=== PATIENT | female | born 2000 | race Caucasian/White ===

== ENCOUNTER 2020-02-18 18:13 | Emergency (ER) | payer BC ==
[2020-02-18] MEDS ORDERED: Sodium Chloride 0.9% 10 ML Syringe FLUSH PRN (18:37)
[2020-02-18] MEDS ORDERED: Sodium Chloride 0.9% 1,000 ML IV ONE (18:38)
[2020-02-18] MEDS ORDERED: Ondansetron 4 MG/2 ML SDV IVPUSH ONE (18:38)
[2020-02-18 19:19] LABS: CHLORIDE,CL 104 mmol/L (98-107); SODIUM,NA 140 mmol/L (136-145)
[2020-02-18] MEDS ORDERED: Ketorolac 30 MG/ML SDV IVPUSH ONE (19:20)
[2020-02-18] MEDS ORDERED: diphenhydrAMINE 50 MG/ML SDV IVPUSH ONE (19:20)
[2020-02-18] MEDS ORDERED: SUMAtriptan 6 MG/0.5 ML SDV SUBCUT ONE (19:21)
--- NOTE | 2020-02-18 19:32 | EDM.PDOC ---
ED HPI GENERAL MEDICAL PROBLEM - General Chief Complaint: General Stated Complaint: HEADACHE, NAUSEA AND VOMITING Time Seen by Provider: 02/18/20 18:29 Source of Information: Reports: Patient History Limitations: Reports: No Limitations - History of Present Illness INITIAL COMMENTS - FREE TEXT/NARRATIVE: Patient comes to ER with migraine complaint. Has history of migraines but usually can control with ibuprofen. Does report having stomach discomfort prior to developing the headache around 3am yesterday morning. Developed nausea and emesis. No diarrhea/abd pain. Headache is worse than usual migraine and has not responded to OTC meds. Mild sore throat yesterday. No runny nose/congestion. No fever/chills. No loss of smell or significant fatigue. No body aches. No UTI symptoms or urinary changes. No other changes reported. No history of recent known Covid exposure. - Related Data Allergies Allergy/AdvReac Type Severity Reaction Status Date / Time No Known Allergies Allergy Verified 02/18/20 18:15 Home Meds: Home Meds Milnacipran HCl [Savella] 50 mg PO BID 02/18/20 [History] Past Medical History Neurological History: Reports: Migraines ED ROS GENERAL - Review of Systems Review Of Systems: Comprehensive ROS is negative, except as noted in HPI. ED EXAM, GENERAL - Physical Exam Exam: See Below Exam Limited By: No Limitations General Appearance: Alert, WD/WN, No Apparent Distress, Other (sitting in darkened room for comfort) Eye Exam: Bilateral Eye: EOMI, PERRL Ears: Hearing Grossly Normal Nose: No: Nasal Deformity, Nasal Swelling, Nasal Drainage Throat/Mouth: Normal Lips, Normal Voice, No Airway Compromise Head: Atraumatic, Normocephalic Neck: Normal Inspection, Supple, Non-Tender, Full Range of Motion. No: Lymphadenopathy (L), Lymphadenopathy (R) Respiratory/Chest: No Respiratory Distress, Lungs Clear, Normal Breath Sounds, No Accessory Muscle Use Cardiovascular: Regular Rate, Rhythm, No Edema, No Murmur GI/Abdominal: Normal Bowel Sounds, Soft, Non-Tender, No Distention (Female) Exam: Deferred Rectal (Female) Exam: Deferred Back Exam: No: CVA Tenderness (L), CVA Tenderness (R), Muscle Spasm Extremities: Normal Range of Motion, Non-Tender, Slow Capillary Refill Neurological: Alert, Oriented, Normal Cognition, Normal Gait, No Motor/Sensory Deficits Psychiatric: Normal Affect, Normal Mood Skin Exam: Warm, Dry, Intact, Normal Color Course - Vital Signs Last Recorded V/S: Last Vital Signs Temp 36.8 C 02/18/20 19:21 Pulse 107 H 02/18/20 19:21 Resp 16 02/18/20 19:21 BP 127/82 02/18/20 19:21 Pulse Ox 100 02/18/20 19:21 - Orders/Labs/Meds Labs: Laboratory Tests 02/18/20 02/18/20 02/18/20 Range/Units 18:37 19:00 19:00 WBC 6.7 (4.0-10.2) K/uL RBC 5.03 (3.77-5.09) M/uL Hgb 14.9 (11.7-15.5) g/dL Hct 44.2 (34.0-46.0) % MCV 87.9 (84.0-98.0) fL MCH 29.6 (28.2-33.3) pg MCHC 33.7 (31.7-36.0) g/dL RDW 13.2 (11.2-14.1) % Plt Count 263 (150-350) K/uL Neut % (Auto) 59.9 (45.0-80.0) % Lymph % (Auto) 33.1 (10.0-50.0) % [place] % (Auto) 6.3 (2.0-14.0) % Eos % (Auto) 0.4 (0.0-5.0) % Baso % (Auto) 0.3 (0.0-2.0) % Neut # (Auto) 3.99 (1.40-7.00) K/uL Lymph # (Auto) 2.21 (0.50-3.50) K/uL [place] # (Auto) 0.42 (0.00-1.00) K/uL Eos # (Auto) 0.03 (0.00-0.50) K/uL Baso # (Auto) 0.02 (0.00-0.20) K/uL Sodium 140 (136-145) mmol/L Potassium 4.1 (3.5-5.1) mmol/L Chloride 104 (98-107) mmol/L Carbon Dioxide 27.0 (21.0-32.0) mmol/L BUN 12 (7-18) mg/dL Creatinine 0.81 (0.51-1.17) mg/dL Est Cr Clr Drug Dosing TNP Estimated GFR (MDRD) > 60 mL/min Glucose 101 (74-106) mg/dL Calcium 9.4 (8.5-10.1) mg/dL Magnesium 2.2 (1.8-2.4) mg/dL Total Bilirubin 0.5 (0.2-1.0) mg/dL AST 16 (15-37) U/L ALT 24 (12-78) U/L Alkaline Phosphatase 101 (46-116) IU/L Total Protein 7.9 (6.4-8.2) g/dL Albumin 4.4 (3.4-5.0) g/dL Specimen Type Urinblad Urine Color Yellow Urine Appearance Cloudy Urine pH 8.0 (5.0-9.0) Ur Specific [place] 1.020 (1.005-1.030) Urine Protein Negative (NEGATIVE) mg/dL Urine Glucose (UA) Negative (NEGATIVE) mg/dL Urine Ketones >=160 H (NEGATIVE) mg/dL Urine Occult Blood Negative (NEGATIVE) Urine Nitrite Negative (NEGATIVE) Urine Bilirubin Negative (NEGATIVE) Urine Urobilinogen 0.2 (0.2-1.0) E.U./dL Ur Leukocyte Esterase Negative (NEGATIVE) Urine RBC Not seen /HPF Urine WBC 0-5 /HPF Ur Epithelial Cells Few /LPF Amorphous Sediment Few (0/HPF) /HPF SARS-CoV-2 RNA (LUKASZ) (NEGATIVE) 02/18/20 Range/Units 21:00 WBC (4.0-10.2) K/uL RBC (3.77-5.09) M/uL Hgb (11.7-15.5) g/dL Hct (34.0-46.0) % MCV (84.0-98.0) fL MCH (28.2-33.3) pg MCHC (31.7-36.0) g/dL RDW (11.2-14.1) % Plt Count (150-350) K/uL Neut % (Auto) (45.0-80.0) % Lymph % (Auto) (10.0-50.0) % [place] % (Auto) (2.0-14.0) % Eos % (Auto) (0.0-5.0) % Baso % (Auto) (0.0-2.0) % Neut # (Auto) (1.40-7.00) K/uL Lymph # (Auto) (0.50-3.50) K/uL [place] # (Auto) (0.00-1.00) K/uL Eos # (Auto) (0.00-0.50) K/uL Baso # (Auto) (0.00-0.20) K/uL Sodium (136-145) mmol/L Potassium (3.5-5.1) mmol/L Chloride (98-107) mmol/L Carbon Dioxide (21.0-32.0) mmol/L BUN (7-18) mg/dL Creatinine (0.51-1.17) mg/dL Est Cr Clr Drug Dosing Estimated GFR (MDRD) mL/min Glucose (74-106) mg/dL Calcium (8.5-10.1) mg/dL Magnesium (1.8-2.4) mg/dL Total Bilirubin (0.2-1.0) mg/dL AST (15-37) U/L ALT (12-78) U/L Alkaline Phosphatase (46-116) IU/L Total Protein (6.4-8.2) g/dL Albumin (3.4-5.0) g/dL Specimen Type Urine Color Urine Appearance Urine pH (5.0-9.0) Ur Specific [place] (1.005-1.030) Urine Protein (NEGATIVE) mg/dL Urine Glucose (UA) (NEGATIVE) mg/dL Urine Ketones (NEGATIVE) mg/dL Urine Occult Blood (NEGATIVE) Urine Nitrite (NEGATIVE) Urine Bilirubin (NEGATIVE) Urine Urobilinogen (0.2-1.0) E.U./dL Ur Leukocyte Esterase (NEGATIVE) Urine RBC /HPF Urine WBC /HPF Ur Epithelial Cells /LPF Amorphous Sediment (0/HPF) /HPF SARS-CoV-2 RNA (LUKASZ) Negative (NEGATIVE) Meds: Medications Discontinued Medications Generic Name Dose Route Start Last Admin Trade Name Freq PRN Reason Stop Dose Admin Diphenhydramine HCl 50 mg 02/18/20 19:20 02/18/20 21:26 Benadryl IVPUSH 02/18/20 19:21 Not Given ONETIME ONE Sodium Chloride 1,000 mls @ 999 mls/hr 02/18/20 18:38 02/18/20 20:06 Normal Saline IV 02/18/20 19:38 999 mls/hr .BOLUS ONE Administration Ketorolac Tromethamine 30 mg 02/18/20 19:20 02/18/20 20:07 Toradol IVPUSH 02/18/20 19:21 30 mg ONETIME ONE Administration Ondansetron HCl 4 mg 02/18/20 18:38 02/18/20 20:07 Zofran IVPUSH 02/18/20 18:39 4 mg ONETIME ONE Administration Sodium Chloride 10 ml 02/18/20 18:37 Saline Flush FLUSH ASDIRECTED PRN Keep Vein Open Sumatriptan Succinate 6 mg 02/18/20 19:21 02/18/20 19:45 Imitrex SUBCUT 02/18/20 19:22 6 mg ONETIME ONE Administration - Re-Assessments/Exams Free Text/Narrative Re-Assessment/Exam: 02/18/20 20:09 Suspect gastroenteritis/viral illness with subsequent headache component based on history. CBC/Chem unremarkable. IV fluids and Zofran ordered. Toradol IV. Headache improved to a "1" after Imitrex. Will add Covid testing as precaution which will be run tomorrow. Plan at this time is to discharge home after IV fluids are finished. No work at [facility] until results available. To follow up as needed. Departure - Departure Time of Disposition: 21:45 Disposition: Home, Self-Care 01 Condition: Good Clinical Impression: Gastroenteritis Migraine Qualifiers: Migraine type: unspecified Status migrainosus presence: without status migrainosus Intractability: not intractable Qualified Code(s): G43.909 - Migraine, unspecified, not intractable, without status migrainosus - Discharge Information *COPY OF PRESCRIPTION DRUG MONITORING REPORT IN PATIENT BARBY: Not Applicable Instructions: Sumatriptan injection Referrals: PCP,Not In Area [Primary Care Provider] - Forms: ED Department Discharge Additional Instructions: Rest/take it easy tomorrow. Covid test will be run tomorrow. If positive we will give you a work slip for [facility] so that you can quarantine at home. If negative and you are feeling better, ok to return to work. Follow up as needed if you have additional problems/concerns. Sepsis Event Note (ED) - Evaluation Sepsis Screening Result: No Definite Risk
== END 2020-02-18 21:50 | disposition home or self-care (01) ==
LOC: LL.ED 18:13
DX: G43.909 Migraine, unspecified, not intractable, without status migrainosus (principal); K52.9 Noninfective gastroenteritis and colitis, unspecified; Z20.828 Contact with and (suspected) exposure to other viral communicable diseases
CPT/HCPCS: 36415; 80053; 81001; 83735; 85025; 87635; 96372; 96374; 96375; 99283; J1885; J2405; J3030; J7030; U0002

== ENCOUNTER → 2022-01-16 | Emergency (ER) | payer BC ==
[~2022-01-16] MED LIST: Ondansetron 4 MG/2 ML SDV ONE; Sodium Chloride 0.9% 1,000 ML IV ONE; Sodium Chloride 0.9% 10 ML Syringe ONE; traMADol 50 MG Tab ONE
[2022-02-10 15:24] LABS: ANION GAP 7.5 meq/L (7-15); CHLORIDE,CL 104 mmol/L (98-107); SODIUM,NA 140 mmol/L (136-145)
[2022-02-10 15:25] LABS: ESTIMATED GFR 95 mL/min (>=60)
== END ==
LOC: LL.ED 07:35
DX: R10.84 Generalized abdominal pain (principal)
CPT/HCPCS: 36415; 74019; 80053; 81001; 81003; 81025; 85025; 87086; 96361; 96374; 96375; 99284; A9270; J2405; J3490; J7030

== ENCOUNTER 2022-09-24 07:55 | Emergency (ER) | payer OTHER, BC | END 2022-09-24 09:11 | disposition home or self-care (01) | LOC: LL.ED 07:55 | DX: S93.402A Sprain of unspecified ligament of left ankle, initial encounter (principal); W20.8XXA Other cause of strike by thrown, projected or falling object, initial encounter; Y92.89 Other specified places as the place of occurrence of the external cause; Y99.0 Civilian activity done for income or pay | CPT/HCPCS: 73600-LT; 99283 ==